=== PATIENT | female | born 1980 | race Caucasian/White ===

== ENCOUNTER 2020-07-22 00:31 | Emergency (ER) | payer MEDICAID ==
[~2020-07-22] VITALS: Ht 162.6 cm; Wt 91.0 kg
[2020-07-22] MEDS: DIPHENHYDRAMINE 25MG CAPSULE PO ONE (01:29)
[2020-07-22] MEDS: EPINEPHRINE 1:1000 1 MG/ML AMP IM ONE (01:29)
[2020-07-22] MEDS: FAMOTIDINE 20MG TABLET PO ONE (01:29)
[2020-07-22] MEDS: PREDNISONE 20MG TABLET PO ONE (01:29)
[2020-07-22] MEDS ORDERED: PRED10TA23 MT (03:33)
[2020-07-22] MEDS ORDERED: EPIN0.3P3 IM (03:33)
[2020-07-22] MEDS ORDERED: B25 MT (03:33)
[2020-07-22 04:04] VITALS: BP 111/65
== END 2020-07-22 04:06 | disposition home or self-care (01) ==
LOC: ER 00:48
DX: T78.49XA Other allergy, initial encounter (principal); X58.XXXA Exposure to other specified factors, initial encounter; Z79.899 Other long term (current) drug therapy
CPT/HCPCS: 93005; 96372; 99284; J3490; J7512; Q0163